=== PATIENT | female | born 1990 | race Caucasian/White ===

== ENCOUNTER 2018-01-13 13:52 | Emergency (ER) | payer OTHER ==
[2018-01-13 14:31] VITALS: BP 129/68
== END 2018-01-13 14:31 | disposition home or self-care (01) ==
LOC: ED 13:52
DX: J06.9 Acute upper respiratory infection, unspecified (principal)

== ENCOUNTER 2018-12-07 13:51 | Emergency (ER) | payer OTHER ==
[~2018-12-07] VITALS: Ht 160 cm; Wt 65.1 kg
[2018-12-07 14:02] VITALS: BP 133/91; Ht 160 cm; Wt 65.1 kg
== END 2018-12-07 17:16 | disposition left against medical advice (07) ==
LOC: ED 13:51
DX: Z53.21 Procedure and treatment not carried out due to patient leaving prior to being seen by health care provider (principal)

== ENCOUNTER 2020-10-22 06:43 | Emergency (ER) | payer OTHER, SELFPAY ==
[~2020-10-22] VITALS: Ht 160 cm; Wt 50.8 kg
[2020-10-22 06:51] VITALS: BP 125/75; Ht 160 cm; Wt 50.8 kg
== END 2020-10-22 08:07 | disposition home or self-care (01) ==
LOC: ED 06:43
DX: U07.1 COVID-19 (principal); F17.210 Nicotine dependence, cigarettes, uncomplicated; Z98.890 Other specified postprocedural states
CPT/HCPCS: U0003